=== PATIENT | female | born 1960 | race Caucasian/White ===

== ENCOUNTER → 2016-05-03 | Outpatient (CLI) | payer MEDICARE ==
[~2016-05-03] MED LIST: ASP81CT; ASPI1TAB PO; CLON2TAB PO; CYCL10TA9 PO; DIVA250T2 PO; DOCU100C37 PO; ENLP5T; EST.625T; FLUO20CA25 PO; FLUO5DRO8 OU; FURO40TA4 PO; GABA-488 PO; GBPN100C; HCT25T; HYDR200T PO; KETO5DRO15 OU; LORA10TA7 PO; MCLZ25TRX PO; MELO15TA14 PO; METHOCARBAMOL; MTH750T; MULT-610 PO; NABUMETONE; NF-ESOM40C; OXYB5TAB9 PO; SMTR50T PO; TRAM50TA2 PO; TRAZ-28 PO
== END ==
LOC: RAD 11:44
PROVIDERS: ATTEND Internal Medicine Cardiovascular Disease
DX: I73.9 Peripheral vascular disease, unspecified (principal); R07.89 Other chest pain; I65.23 Occlusion and stenosis of bilateral carotid arteries; G47.33 Obstructive sleep apnea (adult) (pediatric); M79.7 Fibromyalgia
CPT/HCPCS: 93923

== ENCOUNTER → 2016-05-05 | Outpatient (CLI) | payer MEDICARE ==
[~2016-05-05] MED LIST changes: +CATHETER FLUSH 10 ML SYR IV PRN; +REGADENOSON 0.4 MG/5 ML SYR (LEXISCAN) IV ONE
--- OUTSIDE RECORDS SUMMARY | 2016-05-05 08:31 | XMS REPORT | Continuity of Care Document ---
Author Author [facility] Organization [facility] Address Unknown Phone Unavailable Allergies Active Description Code Type Severity Reaction Onset Reported/Identified Relationship to Patient Clinical Status Yes adhesive [id number] Drug Allergy Unknown N/A 11/06/2006 Yes codeine [id number] Drug Allergy Unknown N/A 11/06/2006 Medications Problems Date Dx Coded Attending Type Code Diagnosis Diagnosed By 08/18/2014 Ot 789.03 08/18/2014 Ot 786.59 08/21/2014 BLAINE RAMACHANDRAN [employer] Ot 305.1 08/21/2014 BLAINE [employer] Ot 780.79 08/21/2014 BLAINE [employer] Ot 782.3 08/21/2014 BLAINE [employer] Ot 786.05 09/18/2014 BLAINE [employer] Ot 305.1 09/18/2014 BLAINE [employer] Ot 443.9 09/18/2014 BLAINE [employer] Ot 780.79 09/18/2014 [employer]INE [employer] Ot 786.05 11/19/2014 SHUN BAUER, CLAUS R Ot 782.3 11/20/2014 SHUN BAUER, CLAUS R Ot 443.9 11/20/2014 SHUN BAUER, CLAUS R Ot 782.3 12/01/2014 CICI ISIDORE O [employer] TECHNICIAN Ot 300.4 DYSTHYMIC DISORDER 12/01/2014 CICI ISIDORE O [employer] TECHNICIAN Ot 327.23 OBSTRUCTIVE SLEEP APNEA (ADULT) ( PEDIATR 12/01/2014 CICI ISIDORE O [employer] TECHNICIAN Ot 443.9 PERIPH VASCULAR DIS NOS 12/01/2014 NWVALENTE ISIDORE O [employer] TECHNICIAN Ot 459.81 VENOUS INSUFFICIENCY NOS 12/01/2014 CICI ISIDORE O [employer] TECHNICIAN Ot 530.81 ESOPHAGEAL REFLUX 12/01/2014 NWAGWU, ISIDORE O [employer] TECHNICIAN Ot 729.5 PAIN IN LIMB 12/01/2014 NWAGWU, ISIDORE O [employer] TECHNICIAN Ot 782.3 EDEMA 12/01/2014 NWAGWU, ISIDORE O [employer] TECHNICIAN Ot F34.1 DYSTHYMIC DISORDER 12/01/2014 NWAGWU, ISIDORE O [employer] TECHNICIAN Ot G47.33 OBSTRUCTIVE SLEEP APNEA (ADULT) ( PEDIATR 12/01/2014 NWAGWU, ISIDORE O [employer] TECHNICIAN Ot I73.9 PERIPHERAL VASCULAR DISEASE, UNSPECIFIED 12/01/2014 NWAGWU, ISIDORE O [employer] SUP[employer] TECHNICIAN Ot I87.2 VENOUS INSUFFICIENCY (CHRONIC) ( PERIPHER 12/01/2014 NWAGWU, ISIDORE O [employer] SU[employer] TECHNICIAN Ot K21.9 GASTRO-ESOPHAGEAL REFLUX DISEASE WITHOUT 12/01/2014 NWAGWU, ISIDORE O [employer] SUP[employer] TECHNICIAN Ot M79.609 PAIN IN UNSPECIFIED LIMB 01/08/2015 Ot 786.59 01/08/2015 BLAINE [employer] Ot 780.79 01/08/2015 BLAINE [employer] Ot 782.3 01/08/2015 BLAINE [employer] Ot 786.05 01/08/2015 BLAINE [employer] Ot 305.1 01/08/2015 BLAINE [employer] Ot 780.79 01/08/2015 BLAINE [employer] Ot 782.3 01/08/2015 BLAINE [employer] Ot 786.05 01/08/2015 BLAINE [employer] Ot 305.1 01/08/2015 BLAINE [employer] Ot 443.9 01/08/2015 BLAINE [employer] Ot 780.79 01/08/2015 BLAINE [employer] Ot 786.05 01/08/2015 SHUN BAUER, CLAUS R Ot 443.9 01/08/2015 SHUN BAUER, CLAUS R Ot 782.3 01/08/2015 SHUN BAUER, CLAUS R Ot 782.3 01/12/2015 DOMINIK GOTTLIEB MD, FACC, FACP CCDS Ot F17.200 01/12/2015 CHERY MD FACC, ALI FACP CCDS Ot G47.30 01/12/2015 CHERY BAUER FAC, ALI FACP CCDS Ot M79.9 01/12/2015 CHERY BAUER FAC, ALI FACP CCDS Ot R06.00 02/03/[address] [facility], ALI FACP CCDS Ot F17.200 02/03/[address] [facility], ALI FACP CCDS Ot G47.30 02/03/[address] [facility], ALI FACP CCDS Ot M79.9 02/03/[address] [facility], ALI FACP CCDS Ot R06.00 04/19/2016 Ot 786.59 CHEST PAIN NEC 04/19/2016 BLAINE [employer]ACH[employer] Ot 780.79 OTH MALAISE FATIGUE 04/19/2016 BLAINE [employer] Ot 782.3 EDEMA 04/19/2016 BLAINE [employer] Ot 786.05 SHORTNESS OF BREATH 04/19/2016 BLAINE [employer] Ot 305.1 TOBACCO USE DISORDER 04/19/2016 BLAINE [employer] Ot 780.79 OTH MALAISE FATIGUE 04/19/2016 BLAINE [employer] Ot 782.3 EDEMA 04/19/2016 BLAINE [employer] Ot 786.05 SHORTNESS OF BREATH 04/19/2016 BLAINE [employer] Ot 305.1 TOBACCO USE DISORDER 04/19/2016 BLAINE [employer] Ot 443.9 PERIPH VASCULAR DIS NOS 04/19/2016 BLAINE [employer] Ot 780.79 OTH MALAISE FATIGUE 04/19/2016 BLAINE [employer] Ot 786.05 SHORTNESS OF BREATH 04/19/2016 CLAUS HOFFMANN MD R Ot 443.9 PERIPH VASCULAR DIS NOS 04/19/2016 CLAUS HOFFMANN MD R Ot 782.3 EDEMA 04/19/2016 CLAUS HOFFMANN MD R Ot 782.3 EDEMA 04/19/2016 CHERY TURCIOS, ALI FACP CCDS Ot F17.200 NICOTINE DEPENDENCE, UNSPECIFIED, UNCOMP 04/19/2016 CHERY BAUER FACC, DOMINIK FACP CCDS Ot G47.30 SLEEP APNEA, UNSPECIFIED 04/19/2016 CHERY BAUER FACC, DOMINIK FACP CCDS Ot M79.9 SOFT TISSUE DISORDER, UNSPECIFIED 04/19/2016 CHERY BAUER FACC, DOMINIK FACP CCDS Ot R06.00 DYSPNEA, UNSPECIFIED 05/03/2016 Ot 786.59 CHEST PAIN NEC 05/03/2016 DUARTE BLAINE T [employer] Ot 780.79 OTH MALAISE FATIGUE 05/03/2016 DUARTE [employer]INE [employer] Ot 782.3 EDEMA 05/03/2016 DUARTE B[employer]INE [employer] Ot 786.05 SHORTNESS OF BREATH 05/03/2016 DUARTE [employer] Ot 305.1 TOBACCO USE DISORDER 05/03/2016 DUARTE [employer]INE [employer] Ot 780.79 OTH MALAISE FATIGUE 05/03/2016 DUARTE [employer]INE [employer] Ot 782.3 EDEMA 05/03/2016 DUARTE [employer]INE [employer] Ot 786.05 SHORTNESS OF BREATH 05/03/2016 DUARTE [employer]INE [employer] Ot 305.1 TOBACCO USE DISORDER 05/03/2016 DUARTE [employer] Ot 443.9 PERIPH VASCULAR DIS NOS 05/03/2016 DUARTE B[employer]INE [employer] Ot 780.79 OTH MALAISE FATIGUE 05/03/2016 DUARTE [employer]INE [employer] Ot 786.05 SHORTNESS OF BREATH 05/03/2016 SHUN BAUER, CLAUS R Ot 443.9 PERIPH VASCULAR DIS NOS 05/03/2016 SHUN BAUER, CLAUS R Ot 782.3 EDEMA 05/03/2016 SHUN BAUER, CLAUS R Ot 782.3 EDEMA 05/03/2016 CHERY BAUER FACC, DOMINIK FACP CCDS Ot F17.200 NICOTINE DEPENDENCE, UNSPECIFIED, UNCOMP 05/03/2016 CHERY BAUER FACC, DOMINIK FACP CCDS Ot G47.30 SLEEP APNEA, UNSPECIFIED 05/03/2016 CHERY BAUER FACC, DOMINIK FACP CCDS Ot M79.9 SOFT TISSUE DISORDER, UNSPECIFIED 05/03/2016 CHERY BAUER FACC, DOMINIK FACP CCDS Ot R06.00 DYSPNEA, UNSPECIFIED 05/03/2016 CHERY DOMINIK BAUER FACC, FACP CCDS Ot R07.89 OTHER CHEST PAIN Procedures Results Encounters ACCT No. Visit Date/Time Discharge Status Pt. Type Provider Facility Loc./Unit Complaint [id number] 01/08/2015 09:13:00 2014 23:59:59 CLS Outpatient DOMINIK GOTTLIEB MD, FACC, FACP CCDS [facility] CARD DYSPNEA [id number] 12/01/2014 09:19:00 2014 23:15:00 DIS Outpatient LANA BOLANOS APRN [facility] CATH PAD CLAUTICATION [id number] 10/31/2014 11:19:00 2014 23:59:59 CLS Outpatient CLAUS HOFFMANN MD [facility] RAD EDEMA MILD CLAUDICATION LOW PULSE [id number] 10/30/2014 15:18:00 2014 23:59:59 CLS Outpatient CLAUS HOFFMANN MD [facility] LAB EDEMA [id number] 08/28/2014 07:55:00 2014 23:59:59 CLS Outpatient BLAINE RAMACHANDRAN [employer] [facility] CARD NM BILAT PERIPHERAL EDEMA, EPISODIC WEAKNESS, SOB [id number] 08/19/2014 08:00:00 2014 23:59:59 CLS Outpatient BLAINE RAMACHANDRAN [employer] [facility] CARD NM BILAT PERIPHERAL EDEMA, EPISODIC WEAKNESS, SOB [id number] 08/18/2014 08:02:00 2014 23:59:59 CLS Outpatient BLAINE RAMACHANDRAN [employer] [facility] CARD SOB,EDEMA,WEAKNESS [id number] 05/03/2016 11:44:00 ACT Outpatient DOMINIK GOTTLIEB MD, FACC, FACP CCDS [facility] RAD LT LEG CLAUDICATION [id number] 04/21/2016 08:00:00 PEN Preadmit DOMINIK GOTTLIEB MD, FACC, FACP CCDS [facility] CARD CHEST DISCOMFORT,JANETT [id number] 08/18/2014 08:00:00 Document Registration [id number] 02/15/2012 14:48:00 Document Registration
[2016-05-05 09:46] VITALS: BP 110/74
[2016-05-05 09:51] VITALS: BP 106/64
[2016-05-05 09:53] VITALS: BP 111/65
--- NOTE | 2016-05-06 23:18 | STRESS TEST ---
PROCEDURE PHYSICIAN: DOMINIK MARROQUIN DATE OF PROCEDURE: 05/05/2016 RESTING AND POST REGADENOSON TECHNETIUM 99M TETROFOSMIN SPECT CT IMAGING: ORDERING PHYSICIAN: Dr. Marroquin. PRIMARY PHYSICIAN: Dr. Neely CLINICAL DIAGNOSIS: Chest discomfort. Baseline images were carried out after injection of 10.47 mCi of technetium 99m tetrofosmin. This was followed by 0.4 mg of regadenoson and 30.8 mCi of technetium 99m tetrofosmin for stress imaging. The electrocardiogram showed sinus rhythm at baseline and did not change significantly with the regadenoson infusion. The patient tolerated the procedure well. She did have some shortness of breath following regadenoson infusion, which resolved in a few minutes and after she had used for inhaler. Review of images at rest and following stress, does not indicate any significant perfusion defects consistent with any significant myocardial ischemia or infarction. Gated images show normal global left ventricular systolic function with a calculated ejection fraction of 78%. Left end-diastolic volume is 34 mL. TID is absent (0.75). CONCLUSIONS: 1. No evidence of significant myocardial ischemia or infarction on this study. 2. Normal regional wall motion. 3. Normal to hyperdynamic left ventricular systolic function with a calculated ejection fraction of 78%. Job ID: [id number] Dictated Date: 05/06/2016 15:15:51 Paint Brush Maker Date: 05/06/2016 23:14:05 / staci
== END ==
LOC: CARD 08:28
PROVIDERS: ATTEND Internal Medicine Cardiovascular Disease
DX: R07.89 Other chest pain (principal); I73.9 Peripheral vascular disease, unspecified; I65.23 Occlusion and stenosis of bilateral carotid arteries; G47.33 Obstructive sleep apnea (adult) (pediatric); M79.7 Fibromyalgia
CPT/HCPCS: 78452; 93017